=== PATIENT | male | born 1945 | race Caucasian/White ===

== ENCOUNTER 2021-09-08 22:34 | Inpatient (IN) | payer MEDICARE ==
[2021-09-09 01:07] VITALS: BMI 37.0
[2021-09-09] MEDS ORDERED: Dextrose 50% Abboject 50 ML SYRINGE SLOW IVP PRN (02:26)
[2021-09-09] MEDS ORDERED: Dextrose 5% in Water 1,000 ML IV PRN (02:26)
[2021-09-09] MEDS ORDERED: HumaLOG 300 UNITS/3 ML VIAL SC PRN ×2 (02:26)
[2021-09-09] MEDS ORDERED: Acyclovir 400 mg Tablet PO SCH (02:30)
[2021-09-09] MEDS ORDERED: Morphine 4 MG/ML VIAL SLOW IVP PRN (02:34)
[2021-09-09] MEDS ORDERED: Sucralfate 1 GM TAB PO SCH (02:45)
[2021-09-09 03:02] LABS: Anion Gap 19 mmol/L (10-20); BUN (Urea Nitrogen) 10 mg/dL (8.4-25.7); Calc. Creatinine Clearance 126 mL/min (70-130); Calcium 9.4 mg/dL (7.8-10.44); Carbon Dioxide 23 mmol/L (23-31); Chloride 82 mmol/L (98-107); Glucose 211 mg/dL (83-110); Potassium 3.6 mmol/L (3.5-5.1); Sodium 120 mmol/L (136-145)
[2021-09-09 04:47] LABS: #Basophils 0.1 thou/uL (0.0-0.2); #Eosinphils 0.1 thou/uL (0.0-0.7); #Lymphocytes 2.8 thou/uL (1.20-3.40); #Monocytes 1.6 thou/uL (0.11-0.59); #Neutrophils 7.9 thou/uL (1.40-6.50); %Basophils 0.7 % (0.0-1.0); %Eosinophils 0.9 % (0.0-10.0); %Lymphocytes 22.1 % (21.0-51.0); %Monocytes 12.9 % (0.0-10.0); %Neutrophils 63.4 % (42.0-75.0); Hemoglobin 12.4 g/dL (14.0-18.0); Mean Corpuscular HGB CONC 34.5 g/dL (32.0-36.0); Mean Corpuscular Hemoglobin 31.7 pg (27.0-31.0); Mean Corpuscular Volume 91.7 fL (78.0-98.0); Mean Platelet Volume 8.3 fL (7.4-10.4); Platelet Count 162 thou/uL (130-400); RBC Distribution Width 11.7 % (11.5-14.5); Red Blood Cell (RBC) Count 3.93 mill/uL (4.70-6.10); White Blood Cell (WBC) Count 12.5 thou/uL (4.8-10.8)
[2021-09-09 05:16] LABS: Anion Gap 19 mmol/L (10-20); BUN (Urea Nitrogen) 10 mg/dL (8.4-25.7); Calc. Creatinine Clearance 124 mL/min (70-130); Calcium 9.5 mg/dL (7.8-10.44); Carbon Dioxide 24 mmol/L (23-31); Chloride 82 mmol/L (98-107); Glucose 229 mg/dL (83-110); Potassium 3.5 mmol/L (3.5-5.1); Sodium 121 mmol/L (136-145)
[2021-09-09 06:31] LABS: #Eosinphils 0.1 thou/uL (0.0-0.7); #Lymphocytes 3.2 thou/uL (1.20-3.40); #Monocytes 1.7 thou/uL (0.11-0.59); #Neutrophils 7.8 thou/uL (1.40-6.50); %Basophils 0.1 % (0.0-1.0); %Eosinophils 0.9 % (0.0-10.0); %Lymphocytes 25.1 % (21.0-51.0); %Monocytes 13.1 % (0.0-10.0); %Neutrophils 60.7 % (42.0-75.0); Hemoglobin 12.4 g/dL (14.0-18.0); Mean Corpuscular HGB CONC 32.9 g/dL (32.0-36.0); Mean Corpuscular Hemoglobin 29.9 pg (27.0-31.0); Mean Corpuscular Volume 90.9 fL (78.0-98.0); Mean Platelet Volume 8.6 fL (7.4-10.4); Platelet Count 173 thou/uL (130-400); RBC Distribution Width 11.6 % (11.5-14.5); Red Blood Cell (RBC) Count 4.16 mill/uL (4.70-6.10); White Blood Cell (WBC) Count 12.8 thou/uL (4.8-10.8)
[2021-09-09] MEDS ORDERED: Senokot S 8.6-50 MG TAB PO PRN (08:11)
[2021-09-09] MEDS ORDERED: Calcium Carbonate 500 MG ChewTAB PO PRN (08:11)
[2021-09-09] MEDS ORDERED: Ondansetron ODT 8 MG TAB PO PRN (08:14)
[2021-09-09] MEDS ORDERED: Famotidine 20 MG TAB PO SCH (08:15)
[2021-09-09] MEDS ORDERED: Non-Formulary Item 1 EACH (Esomeprazole Magnesium [Nexium] 20 MG Capsule.Dr) PO SCH (09:00)
[2021-09-09] MEDS ORDERED: DILTIAZEM HCL 180 MG PO SCH (09:00)
[2021-09-09] MEDS ORDERED: Non-Formulary Item 1 EACH (Hydrochlorothiazide [Hydrochlorothiazide] 12.5 MG Tablet) PO SCH (09:00)
[2021-09-09] MEDS ORDERED: Non-Formulary Item 1 EACH (Fluticasone Propionate [Flonase Allergy Relief] 9.9 ML Bottle) EA NARE SCH (09:00)
[2021-09-09] MEDS ORDERED: Hydrochlorothiazide 25 MG TAB PO SCH (09:00)
[2021-09-09 09:03] LABS: ALT (SGPT) 32 U/L (8-55); AST (SGOT) 49 U/L (5-34); Alkaline Phosphatase 46 U/L (40-110); Anion Gap 18 mmol/L (10-20); BUN (Urea Nitrogen) 10 mg/dL (8.4-25.7); Bilirubin, Direct 0.4 mg/dL (0.1-0.3); Bilirubin, Total 1.2 mg/dL (0.2-1.2); Calc. Creatinine Clearance 124 mL/min (70-130); Calcium 9.6 mg/dL (7.8-10.44); Carbon Dioxide 24 mmol/L (23-31); Chloride 83 mmol/L (98-107); Glucose 216 mg/dL (83-110); Potassium 3.7 mmol/L (3.5-5.1); Protein, Total 7.2 g/dL (5.8-8.1); Sodium 121 mmol/L (136-145)
[2021-09-09] MEDS: Acyclovir 400 mg Tablet PO SCH ×2 (10:33→19:59)
[2021-09-09] MEDS: Enoxaparin Sodium 40 MG/0.4 ML SYRINGE SC SCH (10:33)
[2021-09-09] MEDS: Aspirin 81 mg Enteric Coated Tablet PO SCH (10:33)
[2021-09-09] MEDS: Multivit, Therapeutic 1 TAB PO SCH (10:34)
[2021-09-09] MEDS: Fluticasone Propionate Nasal Spray 16 gm Bottle NASAL SCH (10:37)
[2021-09-09 11:03] LABS: Anion Gap 15 mmol/L (10-20); BUN (Urea Nitrogen) 9 mg/dL (8.4-25.7); Calc. Creatinine Clearance 131 mL/min (70-130); Calcium 9.2 mg/dL (7.8-10.44); Carbon Dioxide 26 mmol/L (23-31); Chloride 83 mmol/L (98-107); Glucose 206 mg/dL (83-110); Potassium 3.5 mmol/L (3.5-5.1); Sodium 120 mmol/L (136-145)
[2021-09-09 14:32] LABS: Bacteria/HPF None Seen HPF (None Seen); Bilirubin Negative (Negative); Blood, Urine Negative (Negative); Clarity Clear (Clear); Glucose, Urine (Dipstick) 30 mg/dL (Negative); Ketone, Urine Trace mg/dL (Negative); Leukocyte Negative Leu/uL (Negative); Nitrite Negative (Negative); Protein, Urine (Dipstick) Negative (Neg-Trace); RBC/HPF None Seen HPF (0-3); Specific Gravity, Urine 1.005 (1.002-1.036); Squamous Epithelial None Seen HPF (0-3); Urobilinogen Normal mg/dL (Less than 2); WBC/HPF 0-3 HPF (0-3)
[2021-09-09 14:36] LABS: Urine Culture Reflex No No
[2021-09-09] MEDS: metFORMIN 500 MG TAB PO SCH (16:25)
[2021-09-09 16:57] LABS: Anion Gap 18 mmol/L (10-20); BUN (Urea Nitrogen) 9 mg/dL (8.4-25.7); Calc. Creatinine Clearance 126 mL/min (70-130); Calcium 9.9 mg/dL (7.8-10.44); Carbon Dioxide 26 mmol/L (23-31); Chloride 84 mmol/L (98-107); Glucose 184 mg/dL (83-110); Potassium 3.7 mmol/L (3.5-5.1); Sodium 124 mmol/L (136-145)
[2021-09-09] MEDS: Ipratropium Bromide 0.06% Nasal Inhaler 15ml EA NARE SCH (18:55)
[2021-09-09] MEDS: Tamsulosin HCl 0.4 MG CAP PO SCH (19:59)
[2021-09-10 05:42] LABS: Anion Gap 17 mmol/L (10-20); BUN (Urea Nitrogen) 8 mg/dL (8.4-25.7); Calc. Creatinine Clearance 139 mL/min (70-130); Calcium 9.2 mg/dL (7.8-10.44); Carbon Dioxide 26 mmol/L (23-31); Chloride 83 mmol/L (98-107); Glucose 204 mg/dL (83-110); Potassium 3.5 mmol/L (3.5-5.1); Sodium 122 mmol/L (136-145)
[2021-09-10 05:45] LABS: Hemoglobin 12.6 g/dL (14.0-18.0); Mean Corpuscular HGB CONC 34.7 g/dL (32.0-36.0); Mean Corpuscular Hemoglobin 31.8 pg (27.0-31.0); Mean Corpuscular Volume 91.5 fL (78.0-98.0); Mean Platelet Volume 8.5 fL (7.4-10.4); Platelet Count 173 thou/uL (130-400); RBC Distribution Width 11.7 % (11.5-14.5); Red Blood Cell (RBC) Count 3.97 mill/uL (4.70-6.10); White Blood Cell (WBC) Count 8.9 thou/uL (4.8-10.8)
[2021-09-10 05:46] LABS: Band 2 % (5-11); Eosinophils 1 % (0-10); Hypochromia SLIGHT = 6-15 cells (100X) (0-5/hpf); Lymphocytes 24 % (21-51); MDiff Complete? YES; Monocytes 14 % (0-10); Neutrophil 57 % (42-75); Platelet Morphology Comment Appears Adequate; Reactive Lymphocytes 2 % (0-10)
[2021-09-10] MEDS: Sucralfate 1 GM/10 ML UDCUP PO PRN ×4 (06:05→22:49)
[2021-09-10] MEDS: Ipratropium Bromide 0.06% Nasal Inhaler 15ml EA NARE SCH ×2 (09:27→18:05)
[2021-09-10] MEDS: Aspirin 81 mg Enteric Coated Tablet PO SCH (09:28)
[2021-09-10] MEDS: Enoxaparin Sodium 40 MG/0.4 ML SYRINGE SC SCH (09:28)
[2021-09-10] MEDS: metFORMIN 500 MG TAB PO SCH ×2 (09:28→16:53)
[2021-09-10] MEDS: Fluticasone Propionate Nasal Spray 16 gm Bottle NASAL SCH (09:28)
[2021-09-10] MEDS: Multivit, Therapeutic 1 TAB PO SCH (09:29)
[2021-09-10] MEDS ORDERED: Lidocaine 2% Viscous Solution 10 ML, Aluminum & Magnesium Hydroxide 30 ML SSW SCH (10:00)
[2021-09-10] MEDS: Acyclovir 400 mg Tablet PO SCH ×2 (10:14→20:31)
[2021-09-10] MEDS: Sodium Chloride 1 GM TAB PO SCH ×3 (10:14→20:31)
[2021-09-10] MEDS: ALPRAZolam 0.25 MG TAB PO PRN ×2 (10:26→20:34)
[2021-09-10] MEDS ORDERED: HumaLOG 300 UNITS/3 ML VIAL SC PRN (14:24)
[2021-09-10] MEDS ORDERED: hydrALAZINE 20 MG/ML VIAL SLOW IVP PRN (14:26)
[2021-09-10] MEDS: Acetaminophen 325 MG TAB PO PRN (15:43)
[2021-09-10 15:44] LABS: Anion Gap 18 mmol/L (10-20); BUN (Urea Nitrogen) 7 mg/dL (8.4-25.7); Calc. Creatinine Clearance 137 mL/min (70-130); Calcium 9.3 mg/dL (7.8-10.44); Carbon Dioxide 25 mmol/L (23-31); Chloride 85 mmol/L (98-107); Glucose 155 mg/dL (83-110); Potassium 3.5 mmol/L (3.5-5.1); Sodium 124 mmol/L (136-145)
[2021-09-10] MEDS: Tamsulosin HCl 0.4 MG CAP PO SCH (20:31)
[2021-09-11 05:08] LABS: #Basophils 0.1 thou/uL (0.0-0.2); #Eosinphils 0.2 thou/uL (0.0-0.7); #Lymphocytes 2.4 thou/uL (1.20-3.40); #Monocytes 1.1 thou/uL (0.11-0.59); #Neutrophils 4.5 thou/uL (1.40-6.50); %Basophils 0.7 % (0.0-1.0); %Eosinophils 2.5 % (0.0-10.0); %Lymphocytes 28.7 % (21.0-51.0); %Monocytes 13.4 % (0.0-10.0); %Neutrophils 54.8 % (42.0-75.0); Hemoglobin 12.1 g/dL (14.0-18.0); Mean Corpuscular HGB CONC 33.9 g/dL (32.0-36.0); Mean Corpuscular Hemoglobin 31.3 pg (27.0-31.0); Mean Corpuscular Volume 92.4 fL (78.0-98.0); Mean Platelet Volume 8.4 fL (7.4-10.4); Platelet Count 181 thou/uL (130-400); RBC Distribution Width 11.6 % (11.5-14.5); Red Blood Cell (RBC) Count 3.86 mill/uL (4.70-6.10); White Blood Cell (WBC) Count 8.2 thou/uL (4.8-10.8)
[2021-09-11 05:23] LABS: Anion Gap 15 mmol/L (10-20); BUN (Urea Nitrogen) 7 mg/dL (8.4-25.7); Calc. Creatinine Clearance 151 mL/min (70-130); Calcium 8.7 mg/dL (7.8-10.44); Carbon Dioxide 25 mmol/L (23-31); Chloride 87 mmol/L (98-107); Glucose 167 mg/dL (83-110); Potassium 3.3 mmol/L (3.5-5.1); Sodium 124 mmol/L (136-145)
[2021-09-11] MEDS ORDERED: Potassium Chloride 20 MEQ TAB PO SCH (07:45)
[2021-09-11] MEDS: Ipratropium Bromide 0.06% Nasal Inhaler 15ml EA NARE SCH ×2 (08:23→21:22)
[2021-09-11] MEDS: Aspirin 81 mg Enteric Coated Tablet PO SCH (08:26)
[2021-09-11] MEDS: metFORMIN 500 MG TAB PO SCH ×2 (08:26→18:39)
[2021-09-11] MEDS: Acyclovir 400 mg Tablet PO SCH ×2 (08:26→21:16)
[2021-09-11] MEDS: Fish Oil 1,000 MG CAP PO SCH ×2 (08:28→21:19)
[2021-09-11] MEDS: Enoxaparin Sodium 40 MG/0.4 ML SYRINGE SC SCH (08:28)
[2021-09-11] MEDS: Fluticasone Propionate Nasal Spray 16 gm Bottle NASAL SCH (08:29)
[2021-09-11] MEDS: Lisinopril 20 MG TAB PO SCH (08:30)
[2021-09-11] MEDS: Multivit, Therapeutic 1 TAB PO SCH (08:30)
[2021-09-11] MEDS: Sodium Chloride 1 GM TAB PO SCH ×3 (08:31→21:18)
[2021-09-11] MEDS: Acetaminophen 325 MG TAB PO PRN ×2 (08:38→18:40)
[2021-09-11] MEDS ORDERED: Azelastine 137 MCG/Spray 30 ML NS SCH (09:00)
[2021-09-11] MEDS ORDERED: Non-Formulary Item 1 EACH (Lisinopril [Lisinopril] 40 MG Tablet) PO SCH (09:00)
[2021-09-11] MEDS: Azelastine 137 MCG/Spray 30 ML NS SCH ×2 (09:46→21:22)
[2021-09-11] MEDS: ALPRAZolam 0.25 MG TAB PO PRN ×2 (09:56→21:17)
[2021-09-11] MEDS: Sucralfate 1 GM/10 ML UDCUP PO PRN ×2 (12:35→23:56)
[2021-09-11] MEDS: Tamsulosin HCl 0.4 MG CAP PO SCH (21:16)
[2021-09-11] MEDS: Benzonatate 100 MG CAP PO PRN (21:59)
[2021-09-12 05:04] LABS: #Eosinphils 0.2 thou/uL (0.0-0.7); #Lymphocytes 2.3 thou/uL (1.20-3.40); #Monocytes 0.9 thou/uL (0.11-0.59); #Neutrophils 4.6 thou/uL (1.40-6.50); %Basophils 0.2 % (0.0-1.0); %Eosinophils 2.1 % (0.0-10.0); %Lymphocytes 28.9 % (21.0-51.0); %Monocytes 11.3 % (0.0-10.0); %Neutrophils 57.5 % (42.0-75.0); Hemoglobin 12.1 g/dL (14.0-18.0); Mean Corpuscular HGB CONC 34.1 g/dL (32.0-36.0); Mean Corpuscular Hemoglobin 31.7 pg (27.0-31.0); Mean Corpuscular Volume 93.1 fL (78.0-98.0); Mean Platelet Volume 8.2 fL (7.4-10.4); Platelet Count 188 thou/uL (130-400); RBC Distribution Width 11.9 % (11.5-14.5); Red Blood Cell (RBC) Count 3.81 mill/uL (4.70-6.10)
[2021-09-12] MEDS: Ipratropium Bromide 0.06% Nasal Inhaler 15ml EA NARE SCH ×3 (05:09→21:38)
[2021-09-12] MEDS: Benzonatate 100 MG CAP PO PRN ×2 (05:09→21:45)
[2021-09-12 05:30] LABS: Anion Gap 15 mmol/L (10-20); BUN (Urea Nitrogen) 6 mg/dL (8.4-25.7); Calc. Creatinine Clearance 132 mL/min (70-130); Calcium 8.9 mg/dL (7.8-10.44); Carbon Dioxide 24 mmol/L (23-31); Chloride 92 mmol/L (98-107); Glucose 168 mg/dL (83-110); Potassium 3.7 mmol/L (3.5-5.1); Sodium 127 mmol/L (136-145)
[2021-09-12] MEDS: Acetaminophen 325 MG TAB PO PRN (07:45)
[2021-09-12] MEDS: Lisinopril 20 MG TAB PO SCH (08:53)
[2021-09-12] MEDS: Multivit, Therapeutic 1 TAB PO SCH (08:53)
[2021-09-12] MEDS: Aspirin 81 mg Enteric Coated Tablet PO SCH (08:53)
[2021-09-12] MEDS: metFORMIN 500 MG TAB PO SCH ×2 (08:53→17:55)
[2021-09-12] MEDS: Azelastine 137 MCG/Spray 30 ML NS SCH ×2 (08:56→21:38)
[2021-09-12] MEDS: Fluticasone Propionate Nasal Spray 16 gm Bottle NASAL SCH (08:56)
[2021-09-12] MEDS: Enoxaparin Sodium 40 MG/0.4 ML SYRINGE SC SCH (08:58)
[2021-09-12] MEDS: Fish Oil 1,000 MG CAP PO SCH ×2 (09:04→21:39)
[2021-09-12] MEDS: Acyclovir 400 mg Tablet PO SCH ×2 (09:05→21:39)
[2021-09-12] MEDS: Sodium Chloride 1 GM TAB PO SCH ×3 (09:21→21:45)
[2021-09-12] MEDS: ALPRAZolam 0.25 MG TAB PO PRN ×2 (10:10→21:39)
[2021-09-12] MEDS: Sucralfate 1 GM/10 ML UDCUP PO PRN ×2 (12:53→21:50)
[2021-09-12] MEDS ORDERED: Preparation H Suppository PR PRN (16:29)
[2021-09-12] MEDS: Tamsulosin HCl 0.4 MG CAP PO SCH (21:39)
[2021-09-13 04:34] LABS: #Eosinphils 0.2 thou/uL (0.0-0.7); #Neutrophils 4.2 thou/uL (1.40-6.50); %Basophils 0.3 % (0.0-1.0); %Eosinophils 2.4 % (0.0-10.0); %Lymphocytes 35.7 % (21.0-51.0); %Monocytes 11.9 % (0.0-10.0); %Neutrophils 49.7 % (42.0-75.0); Hemoglobin 12.7 g/dL (14.0-18.0); Mean Corpuscular HGB CONC 33.4 g/dL (32.0-36.0); Mean Corpuscular Hemoglobin 31.2 pg (27.0-31.0); Mean Corpuscular Volume 93.5 fL (78.0-98.0); Mean Platelet Volume 7.6 fL (7.4-10.4); Platelet Count 194 thou/uL (130-400); Red Blood Cell (RBC) Count 4.06 mill/uL (4.70-6.10); White Blood Cell (WBC) Count 8.5 thou/uL (4.8-10.8)
[2021-09-13 04:55] LABS: Anion Gap 13 mmol/L (10-20); BUN (Urea Nitrogen) 5 mg/dL (8.4-25.7); Calc. Creatinine Clearance 130 mL/min (70-130); Calcium 9.3 mg/dL (7.8-10.44); Carbon Dioxide 25 mmol/L (23-31); Chloride 100 mmol/L (98-107); Glucose 134 mg/dL (83-110); Sodium 134 mmol/L (136-145)
[2021-09-13 08:00] VITALS: BP 165/86; TEMP 97.8
[2021-09-13] MEDS: ALPRAZolam 0.25 MG TAB PO PRN (08:27)
[2021-09-13] MEDS: metFORMIN 500 MG TAB PO SCH (08:28)
[2021-09-13] MEDS: Sodium Chloride 1 GM TAB PO SCH (08:28)
[2021-09-13] MEDS: Enoxaparin Sodium 40 MG/0.4 ML SYRINGE SC SCH (08:28)
[2021-09-13] MEDS: Fish Oil 1,000 MG CAP PO SCH (08:29)
[2021-09-13] MEDS: Acyclovir 400 mg Tablet PO SCH (08:30)
[2021-09-13] MEDS: Multivit, Therapeutic 1 TAB PO SCH (08:30)
[2021-09-13] MEDS: Aspirin 81 mg Enteric Coated Tablet PO SCH (08:30)
[2021-09-13] MEDS: Lisinopril 20 MG TAB PO SCH (08:30)
[2021-09-13] MEDS: Fluticasone Propionate Nasal Spray 16 gm Bottle NASAL SCH (08:32)
[2021-09-13] MEDS: Ipratropium Bromide 0.06% Nasal Inhaler 15ml EA NARE SCH (08:32)
[2021-09-13] MEDS: Azelastine 137 MCG/Spray 30 ML NS SCH (08:33)
== END 2021-09-13 12:10 | disposition home or self-care (01) | DRG 472 ==
LOC: 2SW 09-09 00:44
PROVIDERS: ADMIT Internal Medicine; ATTEND Internal Medicine
PROC: 0RG20A0 Fusion of 2 or more Cervical Vertebral Joints with Interbody Fusion Device, Anterior Approach, Anterior Column, Open Approach (ICD-10-PCS; principal; 2021-09-06)
DX: M50.122 Cervical disc disorder at C5-C6 level with radiculopathy (principal); E22.2 Syndrome of inappropriate secretion of antidiuretic hormone; Z20.822 Contact with and (suspected) exposure to COVID-19; E87.6 Hypokalemia; I25.10 Atherosclerotic heart disease of native coronary artery without angina pectoris; F41.9 Anxiety disorder, unspecified; N18.1 Chronic kidney disease, stage 1; I12.9 Hypertensive chronic kidney disease with stage 1 through stage 4 chronic kidney disease, or unspecified chronic kidney disease; N40.0 Benign prostatic hyperplasia without lower urinary tract symptoms; E11.22 Type 2 diabetes mellitus with diabetic chronic kidney disease; Z95.5 Presence of coronary angioplasty implant and graft; Z98.1 Arthrodesis status; Z88.5 Allergy status to narcotic agent; Z88.2 Allergy status to sulfonamides; Z88.8 Allergy status to other drugs, medicaments and biological substances; Z79.82 Long term (current) use of aspirin; Z79.84 Long term (current) use of oral hypoglycemic drugs; Z79.51 Long term (current) use of inhaled steroids; Z79.899 Other long term (current) drug therapy; K21.9 Gastro-esophageal reflux disease without esophagitis; E78.5 Hyperlipidemia, unspecified; M47.22 Other spondylosis with radiculopathy, cervical region; M48.02 Spinal stenosis, cervical region; M40.202 Unspecified kyphosis, cervical region; E11.51 Type 2 diabetes mellitus with diabetic peripheral angiopathy without gangrene; M19.019 Primary osteoarthritis, unspecified shoulder; E66.9 Obesity, unspecified; Z68.34 Body mass index [BMI] 34.0-34.9, adult
CPT/HCPCS: 36415; 36416; 71045; 72050; 76700; 80048; 80053; 81001; 82550; 83735; 83930; 83935; 84300; 84443; 84484; 85025; 85610; 85730; 86850; 86900; 86901; 93005; 94760; 96372; 96374; 96376; C1713; C1762; C1889; G0378; J0171; J0500; J0690; J1100; J1650; J1815; J2270; J2405; J2704; J3010; J3490; Q0162; S0020; S0028; U0003; U0005

== ENCOUNTER 2024-11-01 02:42 | Inpatient (IN) | payer MEDICARE ==
[2024-11-01] MEDS ORDERED: Electrolyte Replacement Protocol 1 EACH FS SCH (17:45)
[2024-11-01] MEDS ORDERED: Ondansetron PF 4 MG/2 ML Vial IVP PRN (17:45)
[2024-11-01] MEDS ORDERED: Calcium Carbonate 500 MG ChewTAB PO PRN (17:45)
[2024-11-01] MEDS ORDERED: Dextrose 50% Abboject 50 ML SYRINGE SLOW IVP PRN (17:52)
[2024-11-01] MEDS ORDERED: Glucagon 1 MG/ML KIT IM PRN (17:52)
[2024-11-01] MEDS: Acetaminophen 325 MG TAB PO PRN (20:18)
[2024-11-01] MEDS: Melatonin 3 MG TAB PO SCH (20:18)
[2024-11-01] MEDS: ALPRAZolam 0.25 MG TAB PO PRN (20:19)
[2024-11-02 05:15] LABS: #Basophils 0.03 10x3/uL (0.0-0.2); #Eosinophils 0.23 10x3/uL (0.0-0.7); #Monocytes 0.89 10x3/uL (0.11-0.59); #Neutrophils 3.06 10x3/uL (1.40-6.50); %Basophils 0.4 % (0.0-1.0); %Eosinophils 2.9 % (0.0-10.0); %Lymphocytes 46.7 % (21.0-51.0); %Monocytes 11.2 % (0.0-10.0); %Neutrophils 38.5 % (42.0-75.0); Hematocrit 34.8 % (42.0-52.0); Hemoglobin 11.0 g/dL (14.0-18.0); Mean Corpuscular Hemoglobin 25.9 pg (27.0-31.0); Mean Corpuscular Volume 81.9 fL (78.0-98.0); Platelet Count 244 10x3/uL (130-400); Red Blood Cell (RBC) Count 4.25 mill/uL (4.70-6.10); White Blood Cell (WBC) Count 7.94 10x3/uL (4.8-10.8)
[2024-11-02 05:41] LABS: ALT (SGPT) 14 U/L (Less than 45); AST (SGOT) 22 U/L (11-34); Albumin 3.6 g/dL (3.1-4.5); Alkaline Phosphatase 53 U/L (40-110); Anion Gap 16 mmol/L (10-20); BUN (Urea Nitrogen) 13 mg/dL (8.4-25.7); Bilirubin, Total 0.4 mg/dL (0.3-1.2); Calc. Creatinine Clearance 80 mL/min (70-130); Calcium 9.2 mg/dL (7.8-10.44); Carbon Dioxide 25 mmol/L (23-31); Cardiac Risk 7.7 (Less than 4.5); Chloride 100 mmol/L (98-107); Cholesterol 253 mg/dl (< 200 Desired); Globulin 3.1 g/dL (2.4-3.5); Glucose 102 mg/dL (83-110); HDL Cholesterol 33 mg/dL (>60 Neg Risk); LDL Cholesterol, Calculated 184 mg/dL; Potassium 3.6 mmol/L (3.5-5.1); Sodium 137 mmol/L (136-145); Triglycerides 182 mg/dL (Less than 150)
[2024-11-02] MEDS: Carvedilol 6.25 MG TAB PO SCH (09:07)
[2024-11-02] MEDS: metFORMIN 500 MG TAB PO SCH (09:07)
[2024-11-02] MEDS: Aspirin 81 mg Enteric Coated Tablet PO SCH (09:08)
[2024-11-02] MEDS: Lisinopril 20 MG TAB PO SCH (09:08)
[2024-11-03 16:45] VITALS: BMI 26.6
[2024-11-04] MEDS ORDERED: Senokot 8.6 MG TAB PO PRN (10:17)
[2024-11-04] MEDS: Senokot 8.6 MG TAB PO SCH (12:10)
[2024-11-05] MEDS ORDERED: CEFAZOLIN 2 GM VIAL ONE (10:32)
[2024-11-05] MEDS ORDERED: Heparin 5,000 UNITS/ML VIAL ONE (11:00)
[2024-11-05] MEDS ORDERED: fentaNYL PF 100 MCG/2 ML SYRINGE ONE (11:05)
[2024-11-05] MEDS ORDERED: PROPOFOL 20 ML ONE (11:06)
[2024-11-05] MEDS ORDERED: Lidocaine 1% PF 5 ML VIAL ONE (11:15)
[2024-11-05] MEDS ORDERED: Ondansetron PF 4 MG/2 ML Vial ONE (11:15)
[2024-11-05] MEDS ORDERED: PHENYLEPHRINE-NS 100 MCG/ML 10 ML SYRINGE ONE (12:14)
[2024-11-05] MEDS ORDERED: NEOSTIGMINE 3 MG/3 ML SYRINGE ONE (12:14)
[2024-11-05] MEDS ORDERED: Glycopyrrolate 0.2 MG/ML 5 ML SYRINGE ONE (12:14)
[2024-11-05] MEDS ORDERED: Rocuronium Bromide 10 MG/ML (10ML VIAL) ONE (12:14)
[2024-11-05] MEDS ORDERED: hydrALAZINE 20 MG/ML VIAL SLOW IVP PRN (13:57)
[2024-11-05] MEDS ORDERED: Nitroglycerin 50 MG/250 ML BOT 250 ML IVPB PRN (13:57)
[2024-11-05] MEDS ORDERED: Ondansetron PF 4 MG/2 ML Vial IVP PRN (13:57)
[2024-11-05] MEDS: Phenylephrine 40 MG/NS 250 ML 250 ML IVPB PRN (14:32)
[2024-11-05] MEDS: Azelastine 137 MCG/NASAL Spray 30 ML NS SCH (17:33)
[2024-11-05] MEDS: Acetaminophen 325 MG TAB PO PRN (21:55)
[2024-11-06 07:10] VITALS: BMI 30.9
[2024-11-06 08:31] LABS: #Basophils Less than 0.03 10x3/uL (0.0-0.2); #Eosinophils Less than 0.03 10x3/uL (0.0-0.7); #Monocytes 1.64 10x3/uL (0.11-0.59); #Neutrophils 8.94 10x3/uL (1.40-6.50); %Basophils 0.1 % (0.0-1.0); %Eosinophils 0.0 % (0.0-10.0); %Lymphocytes 30.9 % (21.0-51.0); %Monocytes 10.6 % (0.0-10.0); %Neutrophils 57.8 % (42.0-75.0); Hematocrit 33.8 % (42.0-52.0); Hemoglobin 10.8 g/dL (14.0-18.0); Mean Corpuscular Hemoglobin 26.0 pg (27.0-31.0); Mean Corpuscular Volume 81.4 fL (78.0-98.0); Platelet Count 283 10x3/uL (130-400); Red Blood Cell (RBC) Count 4.15 mill/uL (4.70-6.10); White Blood Cell (WBC) Count 15.45 10x3/uL (4.8-10.8)
[2024-11-06 08:53] LABS: Anion Gap 13 mmol/L (10-20); BUN (Urea Nitrogen) 16 mg/dL (8.4-25.7); Calc. Creatinine Clearance 70 mL/min (70-130); Calcium 8.9 mg/dL (7.8-10.44); Carbon Dioxide 21 mmol/L (23-31); Chloride 104 mmol/L (98-107); Glucose 112 mg/dL (83-110); Potassium 4.3 mmol/L (3.5-5.1); Sodium 134 mmol/L (136-145)
[2024-11-06] MEDS ORDERED: Azelastine 137 MCG/NASAL Spray 30 ML NS SCH (09:00)
[2024-11-06] MEDS: glipiZIDE XL 2.5 mg ER.TAB PO SCH (09:26)
[2024-11-07 04:51] LABS: #Basophils 0.03 10x3/uL (0.0-0.2); #Eosinophils 0.14 10x3/uL (0.0-0.7); #Monocytes 1.11 10x3/uL (0.11-0.59); #Neutrophils 4.44 10x3/uL (1.40-6.50); %Basophils 0.3 % (0.0-1.0); %Eosinophils 1.6 % (0.0-10.0); %Lymphocytes 34.0 % (21.0-51.0); %Monocytes 12.8 % (0.0-10.0); %Neutrophils 51.1 % (42.0-75.0); Hematocrit 30.3 % (42.0-52.0); Hemoglobin 9.3 g/dL (14.0-18.0); Mean Corpuscular Hemoglobin 25.6 pg (27.0-31.0); Mean Corpuscular Volume 83.5 fL (78.0-98.0); Platelet Count 198 10x3/uL (130-400); Red Blood Cell (RBC) Count 3.63 mill/uL (4.70-6.10); White Blood Cell (WBC) Count 8.70 10x3/uL (4.8-10.8)
[2024-11-07 05:31] LABS: Anion Gap 9 mmol/L (10-20); BUN (Urea Nitrogen) 11 mg/dL (8.4-25.7); Calc. Creatinine Clearance 107 mL/min (70-130); Calcium 8.5 mg/dL (7.8-10.44); Carbon Dioxide 25 mmol/L (23-31); Chloride 104 mmol/L (98-107); Glucose 104 mg/dL (83-110); Potassium 3.8 mmol/L (3.5-5.1); Sodium 134 mmol/L (136-145)
[2024-11-07 08:21] VITALS: TEMP 98
[2024-11-07 11:59] VITALS: BP 117/66
== END 2024-11-07 13:00 | disposition home or self-care (01) | DRG 39 ==
LOC: 2NO 16:06 → OBSVTOIN 17:45 → CCU 11-05 13:38 → 2NO 11-06 21:15
PROVIDERS: ADMIT Internal Medicine; ATTEND Hospitalist
PROC: 03CK0ZZ Extirpation of Matter from Right Internal Carotid Artery, Open Approach (ICD-10-PCS; principal; 2024-11-01)
PROC: 3E033XZ Introduction of Vasopressor into Peripheral Vein, Percutaneous Approach (ICD-10-PCS; 2024-11-01)
PROC: 3E03329 Introduction of Other Anti-infective into Peripheral Vein, Percutaneous Approach (ICD-10-PCS; 2024-11-01)
PROC: 03UK0JZ Supplement Right Internal Carotid Artery with Synthetic Substitute, Open Approach (ICD-10-PCS; 2024-11-01)
DX: I65.23 Occlusion and stenosis of bilateral carotid arteries (principal); I16.0 Hypertensive urgency; I25.10 Atherosclerotic heart disease of native coronary artery without angina pectoris; E78.5 Hyperlipidemia, unspecified; I10 Essential (primary) hypertension; J30.2 Other seasonal allergic rhinitis; N40.0 Benign prostatic hyperplasia without lower urinary tract symptoms; K21.9 Gastro-esophageal reflux disease without esophagitis; Z98.890 Other specified postprocedural states; Z95.5 Presence of coronary angioplasty implant and graft; Z95.1 Presence of aortocoronary bypass graft; Z79.01 Long term (current) use of anticoagulants; Z88.2 Allergy status to sulfonamides; Z88.5 Allergy status to narcotic agent; Z79.899 Other long term (current) drug therapy; Z79.82 Long term (current) use of aspirin; Z79.84 Long term (current) use of oral hypoglycemic drugs; R94.31 Abnormal electrocardiogram [ECG] [EKG]; Z98.1 Arthrodesis status; Z87.891 Personal history of nicotine dependence; D72.829 Elevated white blood cell count, unspecified; E11.51 Type 2 diabetes mellitus with diabetic peripheral angiopathy without gangrene; K76.0 Fatty (change of) liver, not elsewhere classified
CPT/HCPCS: 36415; 36416; 70496; 70498; 70551; 80048; 80053; 80061; 81001; 83036; 83880; 84484; 85025; 93005; 94640; C1768; J0169; J0360; J0665; J1100; J1642; J1644; J2270; J2405; J2704; J2720; J3010; J7030; J7620; Q9967

== ENCOUNTER 2024-12-09 12:14 | Outpatient (CLI) | payer MEDICARE | END 2024-12-09 12:15 | disposition home or self-care (01) | LOC: CT 12:14 | PROVIDERS: ATTEND Otolaryngology Plastic Surgery within the Head & Neck | DX: R09.81 Nasal congestion (principal); J32.4 Chronic pansinusitis; Z98.890 Other specified postprocedural states ==

== ENCOUNTER 2025-02-26 10:16 | Outpatient (CLI) | payer MEDICARE | END 2025-02-26 10:17 | disposition home or self-care (01) | LOC: RAD 10:16 | PROVIDERS: ATTEND Thoracic Surgery (Cardiothoracic Vascular Surgery) | DX: R07.89 Other chest pain (principal) | CPT/HCPCS: 71046 ==